=== PATIENT | female | born 1980 | race Caucasian/White ===

== ENCOUNTER 2019-08-19 10:52 | Outpatient (CLI) | payer OTHER ==
--- NOTE | 2019-08-19 12:52 | CT ---
CT ABDOMEN AND PELVIS WITHOUT CONTRAST: HISTORY: Left sided ureteral stent. FINDINGS: Absence of oral and IV contrast reduces the sensitivity of the exam, particularly for evaluation of s olid organs involved. The lung bases are clear. No free air or free fluid is seen in the abdomen or pelvis. No calcified ga llstones are noted. A normal appearing appendix is seen. Uterus and ovaries are present. There are tiny calculi in the left kidney, measuring up to 3 mm. There is an 8 mm cyst in the left an terior renal complex. No calculi are seen in the right kidney, either ureter or the urinary bladder. No hydroureteronephrosis is seen on either side. No osteolytic or osteoblastic lesions are noted. The re is no evidence of aneurysmal dilatation of the abdominal aorta. IMPRESSION: Nonobstructing left renal calculi. POS: [facility]
== END 2019-08-19 10:53 | disposition home or self-care (01) ==
LOC: SCSCT 10:52
PROVIDERS: ATTEND Urology
DX: N20.2 Calculus of kidney with calculus of ureter (principal)
CPT/HCPCS: 74176